=== PATIENT | male | born 1955 | race Caucasian/White ===

== ENCOUNTER 2016-08-16 23:30 | Emergency (ER) | payer BC ==
[2016-08-16 23:29] LABS: BASOPHILS 0.4 %; BASOPHILS ABSOLUTE 0.03 10/3/uL (0.0-0.16); EOSINOPHILS 1.7 %; EOSINOPHILS ABSOLUTE 0.14 10/3/uL (0.0-0.53); ER CBC TAT 0 Hrs 16 Mins; HEMATOCRIT 40.2 % (40.0-51.0); HEMOGLOBIN 14.2 g/dL (13.6-17.8); IMMATURE GRANULOCYTES 0.2 %; IMMATURE GRANULOCYTES ABSOLUTE 0.02 10/3/uL (0.0-0.11); LYMPHOCYTES 30.2 %; LYMPHOCYTES ABSOLUTE 2.55 10/3/uL (0.67-4.30); MEAN CORPUS HGB CONC 35.3 g/dL (32.0-36.0); MEAN CORPUSCULAR HEMOGLOB 31.2 pg (26.0-34.0); MEAN CORPUSCULAR VOLUME 88.4 fL (80-100); MEAN PLATELET VOLUME 9.6 fL (9.2-13.0); MONOCYTES 10.3 %; MONOCYTES ABSOLUTE 0.87 10/3/uL (0.21-1.20); NEUTROPHILS 57.2 %; NEUTROPHILS ABSOLUTE 4.84 10/3/uL (2.02-8.40); PLATELET COUNT 231 10/3/uL (150-400); RBC DISTRIBUTION WIDTH 12.5 % (12.0-16.0); RED CELL COUNT 4.55 10/6/uL (4.7-6.1); WHITE BLOOD CELLS 8.5 10/3/uL (4.5-10.5)
[~2016-08-16 23:30] MED LIST: DEMEROL; GLUCOPHAGE1000 MG PO; LIPITOR10 PO; NITROSTAT0.4 MG SL; NORV10 PO; PERCOCET; PRIN20 PO; VYTORIN 10/10 T1 TAB PO; ZESTRIL40 MG PO
[2016-08-16 23:33] LABS: MANUAL DIFF NO %
[2016-08-16 23:37] LABS: PARTIAL THROMBO TIME 27.6 SEC (22.5-37.2); PROTIME (NOT ORD) 12.9 SEC (12.0-14.5)
[2016-08-16 23:43] LABS: BUN (BLOOD UREA NITROGEN) 15 MG/DL (6-23); CHEST PAIN PROFILE TAT 0 Hrs 30 Mins; CHLORIDE, SERUM 110 MMOL/L (96-112); CO2 (CARBON DIOXIDE) 26 MMOL/L (24-34); CREATININE 0.77 MG/DL (0.70-1.30); GFR AFRICAN AMERICAN 114 ML/MIN (>=60); GFR NON AFRICAN AMERICAN 99 ML/MIN (>=60); GLUCOSE, SERUM 121 MG/DL (60-99); POTASSIUM, SERUM 3.7 MMOL/L (3.5-5.3); SODIUM, SERUM 144 MMOL/L (135-148); TROPONIN I <0.02 NG/ML (<0.05)
== END 2016-08-17 00:38 | disposition home or self-care (01) ==
LOC: ER 23:30
PROVIDERS: Emergency Medicine
DX: R07.9 Chest pain, unspecified (principal); I10 Essential (primary) hypertension; E11.9 Type 2 diabetes mellitus without complications; Z79.899 Other long term (current) drug therapy; Z79.84 Long term (current) use of oral hypoglycemic drugs
CPT/HCPCS: 71020; 80048; 83735; 84484; 85025; 85610; 85730; 93005; 99285